=== PATIENT | female | born 2000 | race Caucasian/White ===

== ENCOUNTER 2019-01-14 09:54 | Emergency (ER) | payer OTHER ==
--- NOTE | 2019-01-14 10:22 | EDPHY ---
General Time Seen by Provider: 01/14/19 10:19 Narrative: CLINICAL IMPRESSION: Left knee effusion, chip avulsion fracture left patella ASSESSMENT/PLAN: Patient is a 18-year-old female with no significant medical history who presents with complaint of left knee pain after jumping experiencing what she describes as a medial hyperextension injury. Patient is nontoxic-appearing, she is in no acute distress on arrival. Knee x-ray reveals chip avulsion fracture of the medial patella with associated effusion. There was no evidence of open fracture, dislocation, compartment syndrome or neurovascular compromise. Her history and physical examination is most consistent with acute patellar fracture with fusion. The patient was placed in an [place] wrap and knee immobilizer , CMS intact post splint placement. She will continue nonweightbearing status until follow-up with Orthopedic surgery. We discussed possibility of needing additional imaging to include an MRI. Patient was given Worth in the emergency department with improvement of her discomfort, she was provided a prescription for severe pain. Ortho referral provided, she will call thing Wednesday morning to schedule an appointment for follow-up. Return precautions discussed- patient to return to the emergency Department for significantly worsening or uncontrolled pain, significant swelling, numbness or tingling of the extremity, paleness or coolness of her digits, fever or for any other concerning symptom. The patient verbalizes understanding and she is in agreement with this plan. DIFFERENTIAL DX: Knee injury while dancing including but not limited to fracture, ACL injury, contusion, muscular strain, and meniscus injury. ED PROCEDURES: Procedure: Splint placement. A knee immobilizer was applied. After application I returned and re-examined the patient. The splint was adequately immobilizing the knee and the patient's circulation and sensation was intact. ED COURSE: Knee x-ray reveals large suprapatellar effusion with a chip avulsion fracture to the medial patella. CHIEF COMPLAINT: Left knee pain HPI: Patient is a 18-year-old female with no significant medical history who presents to the emergency department complaining of left knee pain after an injury that occurred last evening and 11:00 p.m.. 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 She does report that she feels that her knee was possibly dislocated, her friend that was with her realigned her left leg. She has not been able to bear weight. She took 2 aspirin earlier today, has not tried any other pain control. She denies any other injury or surgery to this particular knee. She denies any other injury or complaint. PAST MEDICAL HISTORY: Denies Pertinent Past Surgical History: Denies Family History: Not contributory Social History: Occasional alcohol, denies smoking or illicit drug use. ROS: A full 10 point review of systems was negative except for those mentioned in HPI. PHYSICAL EXAM: General Appearance: Alert, well-developed and in no acute distress. HENT: Normocephalic, atraumatic. External ears are normal. Nares are clear, mucosa is pink. Oropharynx is clear. Eyes: PERRLA, EOMI. Conjunctiva pink, no pallor or injection. Neck: Supple, nontender, no lymphadenopathy, no midline pain, FROM. Respiratory: There are no retractions, lungs are clear to auscultation. Cardiac: Regular rate and rhythm, no murmurs or gallops. Gastrointestinal: Abdomen is soft, nontender, bowel sounds normal, no masses/ hernia, no rigidity, guarding or focal peritoneal findings. Skin: Warm, dry; umbilicated, pink lesion anterior left knee consistent with her history of ringworm. Upper Extremities: Intact distal pulses, Full range of motion intact, no tenderness, no ecchymosis or edema. Lower Extremities: Right lower extremity unremarkable. Intact distal pulses, No edema, No tenderness, No cyanosis, full range of motion intact. Left thigh compartment is soft. Left knee with generalized edema, significantly tender along the medial aspect of the knee. No posterior tenderness to palpation. Left ankle is nontender with full range of motion. There is a small abrasion on the medial aspect of the left ankle. She has no medial or lateral malleolar tenderness, no base of the 5th metatarsal tenderness. Dorsalis pedis 2+ bilaterally. No calf tenderness bilaterally. MEDICAL DECISION MAKING: Patient was seen independently. Secondary supervising physician at time of evaluation was Dr. Bonner, he did not evaluate this patient. Diagnosis: Left knee effusion, chip avulsion fracture of the medial patella. New, requires workup Summary: See Assessment and Plan for summary of ED visit Clinical lab tests: Not applicable. Independent visualization of images, tracing, or specimens: Yes. Decision to obtain medical records or history from someone other than the patient: No Review / Summarize previous medical records: Yes Discussed patient with another provider: Yes, Dr. Bonner Patient Progress: Stable, discharged. - Diagnostics Imaging Results: Imaging Impressions Knee X-Ray 01/14/19 10:10 Impression: Large left knee joint effusion. Small chip avulsion from the medial aspect of the patella. - History Smoking Status: Never smoked - Objective Vital Signs: Initial Vital Signs Temperature (C) 37.1 C 01/14/19 09:57 Heart Rate 110 H 01/14/19 09:57 Respiratory Rate 18 01/14/19 09:57 Blood Pressure 124/72 H 01/14/19 09:57 O2 Sat (%) 97 01/14/19 09:57 O2 Delivery Mode Room Air Allergies/Adverse Reactions: No Known Allergies Allergy (Unverified 01/14/19 10:01) Home Medications: Medication Instructions Recorded Hydrocodone/APAP 5/325 [Worth 1 - 2 tab PO Q4H PRN #10 tab 01/14/19 5/325 (*)] Medications Given: Discontinued Medications Hydrocodone Bitart/Acetaminophen (Worth 5/325) 1 tab PO EDNOW ONE Stop: 01/14/19 10:43 Last Admin: 01/14/19 11:10 Dose: Not Given Departure - Departure Disposition: Home, Routine, Self-Care Clinical Impression: Knee effusion, left Knee injury Qualifiers: Encounter type: initial encounter Laterality: left Qualified Code(s): S89.92XA - Unspecified injury of left lower leg, initial encounter Patellar fracture Qualifiers: Encounter type: initial encounter Fracture type: closed Fracture morphology: other fracture Laterality: left Qualified Code(s): S82.092A - Other fracture of left patella, initial encounter for closed fracture Condition: Fair Instructions: Patellar Fracture (ED), Swollen Knee Joint (ED), Knee Pain (ED) Additional Instructions: DISCHARGE INSTRUCTIONS FROM YOUR DOCTOR Thank you for visiting our emergency department today. Please keep in mind that discharge from the emergency department does not mean that there is nothing wrong - it simply means that we have not identified an emergency condition that requires further evaluation or treatment in the hospital. You should always plan to follow up with primary care for re-evaluation of your condition in the next 2-3 days. If you have been referred to a specialist, please call as soon as possible ( today or tomorrow) to schedule your follow up appointment at the appropriate time. Ice on and off to the affected knee. Elevate as much as possible. Wear the [place] wrap for compression to help decrease the swelling. Wear your knee immobilizer for the next few days for comfort and support. Limit weightbearing and walking and use your crutches until follow-up with Ortho. For pain control: You may take Tylenol, I recommend 500-1000 mg every 6-8 hours as needed. Take with food and a full glass of water. Stop taking if this is upsetting her stomach. Do not exceed 4000 mg in a 24 hr period. You may also take ibuprofen, recommend 400 mg every 6 hr. Take with food and a full glass of water. Stop taking if this upsets her stomach. Do not exceed 2400 mg in a 24 hr period. You have been prescribed Worth which is a narcotic. Please do not drive or operate machinery while taking this medication as it may make you drowsy. It may also be habit forming. This medication can also cause constipation, recommend taking 100 mg of Colace twice daily while taking this medication. This medication also contains Tylenol, please do not take other Tylenol containing products with this medication. Call and schedule a follow-up re-evaluation appointment with your primary care physician in the next 3-7 days. As discussed, you may require further evaluation and/or treatment, ie: an MRI, physical therapy, and/or an orthopedic consultation-- all depending on your healing course. Orthopedic injuries you are at increased risk for developing a blood clot in your leg. Be sure to gently stretch your calf on and off throughout the day and seek follow-up care immediately for any calf pain, redness, swellling, ankle swelling, or other concerns. Return for increased or unmanageable pain, new injury, new site of pain, numbness, tingling, weakness of the leg, coolness or discoloration of the leg/ foot/ankle, redness, swelling, fever, difficulty breathing, chest pain, calf pain, ankle swelling, severe headache, back pain, or for any other new, worsening, or worrisome symptoms. People present with illnesses and injuries in different ways, and it is always possible that we have missed something. You may always return for re-evaluation if symptoms worsen or if they are not improving or if you develop new/different symptoms. Again, thank you for choosing our emergency department. We hope that you feel better. Referrals: SREE TOMLINSON DO [Other] - As per Instructions Janell Flynn MD [Medical Doctor] - 2-3 days, call for appt. Prescriptions: Hydrocodone/APAP 5/325 [Worth 5/325 (*)] 1 - 2 tab PO Q4H PRN #10 tab PRN Reason: Pain, Moderate
[2019-01-14] MEDS ORDERED: HYDROCODONE/APAP 5/325 TAB PO ONE (10:42)
[2019-01-14 11:11] VITALS: BP 116/62
== END 2019-01-14 11:11 | disposition home or self-care (01) ==
DX: S82.092A Other fracture of left patella, initial encounter for closed fracture (principal); M25.462 Effusion, left knee; X50.9XXA Other and unspecified overexertion or strenuous movements or postures, initial encounter; Y93.41 Activity, dancing; Y92.9 Unspecified place or not applicable; Y99.9 Unspecified external cause status
CPT/HCPCS: L1830